=== PATIENT | male | born 1995 | race Caucasian/White ===

== ENCOUNTER 2020-08-16 13:10 | Emergency (ER) | payer OTHER ==
[~2020-08-16 13:10] MED LIST: IBU800 MG PO; ZITHROMAX500 MG PO
[2020-08-16] MEDS ORDERED: BROMFED DM COU473 ML PO (16:05)
== END 2020-08-16 16:08 | disposition home or self-care (01) ==
LOC: ER1 13:10
DX: J06.9 Acute upper respiratory infection, unspecified (principal); K21.9 Gastro-esophageal reflux disease without esophagitis; E78.5 Hyperlipidemia, unspecified; Z88.0 Allergy status to penicillin; Z79.899 Other long term (current) drug therapy; F17.290 Nicotine dependence, other tobacco product, uncomplicated; Z20.822 Contact with and (suspected) exposure to COVID-19
CPT/HCPCS: 0240U; 71046; 99283

== ENCOUNTER 2020-11-07 19:22 | Emergency (ER) | payer OTHER ==
[~2020-11-07 19:22] MED LIST changes: +BROMFED DM COU473 ML PO
[2020-11-07 21:22] LABS: HEMOGLOBIN 15.5 gm/dl (14.0-17.5); RED BLOOD COUNT 4.83 M/UL (4.20-5.50); WHITE BLOOD COUNT 5.1 K/UL (4.5-11.0)
[2020-11-07 21:42] LABS: BUN/CREATININE RATIO 13 (0-10)
[2020-11-08] MEDS ORDERED: DECADRON6 MG PO (00:31)
[2020-11-08] MEDS ORDERED: IBUPROFEN600 MG PO (00:31)
== END 2020-11-08 00:40 | disposition home or self-care (01) ==
LOC: ER1 19:22
PROVIDERS: Physician Assistant
DX: U07.1 COVID-19 (principal); E78.5 Hyperlipidemia, unspecified; Z88.0 Allergy status to penicillin; F17.210 Nicotine dependence, cigarettes, uncomplicated
CPT/HCPCS: 0240U; 71045; 80053; 85025; 99283

== ENCOUNTER 2020-11-16 17:41 | Emergency (ER) | payer OTHER ==
[~2020-11-16] VITALS: Ht 154.9 cm; Wt 81.6 kg
[~2020-11-16 17:41] MED LIST changes: +DECADRON6 MG PO; +IBUPROFEN600 MG PO
[2020-11-16 18:36] LABS: HEMOGLOBIN 15.9 gm/dl (14.0-17.5); RED BLOOD COUNT 5.25 M/UL (4.20-5.50)
[2020-11-16 18:57] LABS: BUN/CREATININE RATIO 15 (0-10)
== END 2020-11-16 21:10 | disposition home or self-care (01) ==
LOC: ER1 17:41
PROVIDERS: Physician Assistant
DX: Z23 Encounter for immunization (principal); U07.1 COVID-19
CPT/HCPCS: 71046; 80053; 85025; 99285; M0243

== ENCOUNTER 2021-04-22 08:26 | Emergency (ER) | payer OTHER | END 2021-04-22 10:30 | disposition home or self-care (01) | LOC: ER1 08:26 | DX: J00 Acute nasopharyngitis [common cold] (principal); Z88.0 Allergy status to penicillin; Z20.822 Contact with and (suspected) exposure to COVID-19 | CPT/HCPCS: 0240U; 87081; 87880; 99283 ==

== ENCOUNTER 2021-04-24 10:33 | Emergency (ER) | payer OTHER ==
[2021-04-24] MEDS ORDERED: FLONASE 0.05% N16 GM (12:39)
[2021-04-24] MEDS ORDERED: DELSYM30 MG/5 ML PO (12:39)
[2021-04-24] MEDS ORDERED: MEDROL DOSEPAK 24 MG PO (12:39)
== END 2021-04-24 12:48 | disposition home or self-care (01) ==
LOC: ER1 10:33
DX: B34.9 Viral infection, unspecified (principal); Z20.822 Contact with and (suspected) exposure to COVID-19
CPT/HCPCS: 99284; U0002